=== PATIENT | female | born 2000 | race Two or more races ===

== ENCOUNTER 2022-06-20 22:08 | Inpatient (IN) | payer BC ==
[~2022-06-20] VITALS: Ht 157.5 cm; Wt 48.7 kg
[2022-06-20 22:29] VITALS: BP 121/85
[2022-06-20] MEDS ORDERED: acetaminophen 325mg tablet PO PRN ×2 (22:35)
[2022-06-20] MEDS ORDERED: mag hydrox/Alum hydrox/simeth 30ml oral suspension PO PRN (22:35)
[2022-06-20] MEDS ORDERED: NO HOME MEDS (22:45)
--- NOTE | 2022-06-20 23:34 | NUR ---
ADMIT NOTE: Pt arrived at 2200 from [facility] accompanied by PCT Lamin. Pt states she called the suicide hotline and was taken to [facility] for having suicidal thoughts with plan to drive her car into a tree or shoot herself. Pt states she has been driving her car really fast going the wrong way in traffic. Pt continues to report feeling suicidal. Pt is cooperative with assessment and went to sleep.
[2022-06-21 07:28] LABS: HEMOGLOBIN A1C 5.2 % (4.5-6.2)
[2022-06-21 07:35] LABS: CHOL/HDL RATIO 2.9 (0.00-4.99); CHOLESTEROL 162 MG/DL (0-200); HDL CHOLESTEROL 56 MG/DL (35-60); LDL CHOLESTEROL 95 MG/DL (50-100); TRIGLYCERIDES 74 MG/DL (20-135)
[2022-06-21 08:00] VITALS: BP 97/59
[2022-06-21] MEDS ORDERED: hydrOXYzine 25 MG tablet PO PRN (14:15)
--- NOTE | 2022-06-21 14:55 | NUR ---
Problem :Pt transferred from [facility] on a 5150 for DTS. Pt states she called the suicide hotline and was taken to [facility] for having suicidal thoughts with plan to drive her car into a tree or shoot herself. Pt states she has been driving her car really fast going the wrong way in traffic. Interventions : 1:1 assessment, establishment of rapport, therapeutic communication, active listening, ensured contract for safety, behavior monitoring and intervention as needed, encouraged pt to come out of room for meals, encouraged nutrition and hydration, provided positive reinforcement, Q15 minute safety checks. Response : Pt refused breakfast. Pt rated her depression at "maybe a 4 or a 5." Pt denied SI/HI/AH/VH. Pt isolated to self and room. Encouraged pt to come to lunch but she would not leave the room. Provided meal tray in her room, pt ate maybe 25%. After lunch, pt observed sitting straight up in bed looking into the hallway with a deer in the headlights expression. Asked pt if she was doing okay. Pt replied, "I'm feeling a bit anxious." Texted Dr Cody to request a PRN order for anxiety. An order was obtained for Atarax 25 mg TID PRN, however, after meeting with a social worker assistant, pt appeared calmer and denied the need for medication or further intervention. Plan : Pt in need of crisis interruption with medication initiation and monitoring in a safe and therapeutic environment until stable to prevent harm to self.
[2022-06-21] MEDS ORDERED: Melatonin 3mg tablet PO PRN (17:30)
[2022-06-21] MEDS ORDERED: ESCITALOPRAM OXALATE 5 MG TABLET PO ONE (17:33)
--- NOTE | 2022-06-21 17:53 | NUR ---
Pt has new orders for Lexapro 5 mg now, Lexapro 5 mg daily, and Melatonin 3 mg HS PRN.
[2022-06-21 19:25] VITALS: BP 118/81
--- NOTE | 2022-06-21 21:16 | NUR ---
Nursing progress note Problem :Pt transferred from [facility] on a 5150 for DTS. Pt states she called the suicide hotline and was taken to [facility] for having suicidal thoughts with plan to drive her car into a tree or shoot herself. Pt states she has been driving her car really fast going the wrong way in traffic. Interventions : 1:1 assessment, establishment of rapport, therapeutic communication, active listening, ensured contract for safety, behavior monitoring and intervention as needed, encouraged pt to come out of room for meals, encouraged nutrition and hydration, provided positive reinforcement, Q15 minute safety checks. Response : Pt was in her room at change of shift, and requested to shower. Pt requested prn meds for anxiety and was given atarax w/good effect. Pt had been sitting and rocking in her bed early in the shift. Pt isolates to her room and states she doesnt feel like coming out "yet." Pt spent time sitting in bed writing in her journal. Pt states she didnt eat much today because she feels to anxious to eat and "just throws it up." Pt took melatonin before bed and reports she slept well the night before. Plan : Pt in need of crisis interruption with medication initiation and monitoring in a safe and therapeutic environment until stable to prevent harm to self. Addendum: 06/21/22 at 2123 by Julia Rutherford RN Pt denies s/i this evening stating "I feel ok right now."
[2022-06-22 07:44] VITALS: BP 103/62
[2022-06-22] MEDS: ESCITALOPRAM OXALATE 5 MG TABLET PO SCH (08:18)
[2022-06-22] MEDS ORDERED: LEVONORGESTREL 1.5MG tablet 1.5 MG TABLET PO ONE (11:20)
--- NOTE | 2022-06-22 16:49 | NUR ---
Nursing Progress Note: Problem :Pt transferred from [facility] on a 5150 for DTS. Pt states she called the suicide hotline and was taken to [facility] for having suicidal thoughts with plan to drive her car into a tree or shoot herself. Pt states she has been driving her car really fast going the wrong way in traffic. Interventions : 1:1 assessment, establishment of rapport, therapeutic communication, active listening, ensured contract for safety, behavior monitoring and intervention as needed, encouraged pt to come out of room for meals, encouraged nutrition and hydration, provided positive reinforcement, Q15 minute safety checks. Response : Pt refused breakfast. Pt reported that she didn't sleep very good. Later, pt approached the nurse's station to request a Plan B pill. Pt stated that she had spoken with her boyfriend and he encouraged her to do so. Pt reports that she had unprotected sex with her boyfriend on Monday afternoon. She was admitted at [facility] Monday night. Notified FRANCINE Franco who ordered the Plan B pill which was given at 1132 along with a snack. Asked pt if she had used the Plan B pill before, she acknowledged that she had. Asked pt why she was not on control. Pt replied that the pills made her feel sick. Asked if she had heard about the Depo implant. She replied she tried it and had a really bad reaction. Pt indicates that she does not have a regular provider. Pt educated that there are many different pills and options and that [facility]. Pt continues to endorse depression, pt denied SI/HI/AH/VH. Pt is mostly isolative to self and has a blunted affect. Plan : Pt in need of crisis interruption with medication initiation and monitoring in a safe and therapeutic environment until stable to prevent harm to self.
[2022-06-22 19:00] VITALS: BP 101/71
--- NOTE | 2022-06-23 04:48 | NUR ---
Nursing Progress Note: Problem :Pt transferred from [facility] on a 5150 for DTS. Pt states she called the suicide hotline and was taken to [facility] for having suicidal thoughts with plan to drive her car into a tree or shoot herself. Pt states she has been driving her car really fast going the wrong way in traffic. Interventions : 1:1 assessment, establishment of rapport, therapeutic communication, active listening, ensured contract for safety, behavior monitoring and intervention as needed, encouraged pt to come out of room for meals, encouraged nutrition and hydration, provided positive reinforcement, Q15 minute safety checks. Response : Patient is pleasant and cooperative; no scheduled medications this shift. She denies SI, HI, A/VH; she self isolative and appears guarded as she responds as minimal as possible. Patient observed talking on the phone prior to bed; sleeping with no apparent difficulties. Plan : Pt in need of crisis interruption with medication initiation and monitoring in a safe and therapeutic environment until stable to prevent harm to self.
[2022-06-23 07:19] VITALS: BP 101/66
[2022-06-23] MEDS: ESCITALOPRAM OXALATE 5 MG TABLET PO SCH (08:10)
[2022-06-23] MEDS: magnesium hydroxide 30ml (MOM) UD suspension PO PRN ×2 (08:53→08:57)
--- NOTE | 2022-06-23 16:39 | NUR ---
Nursing Progress Note: Problem :Pt transferred from [facility] on a 5150 for DTS. Pt states she called the suicide hotline and was taken to [facility] for having suicidal thoughts with plan to drive her car into a tree or shoot herself. Pt states she has been driving her car really fast going the wrong way in traffic. Interventions : 1:1 assessment, establishment of rapport, therapeutic communication, active listening, ensured contract for safety, behavior monitoring and intervention as needed, encouraged pt to come out of room for meals, encouraged nutrition and hydration, provided positive reinforcement, Q15 minute safety checks. Response : Pt was up for breakfast in the dining room today. Pt ate 75% of her meal. Pt c/o constipation and was given milk of magnesia at 0853. Pt took 1/2 a sip of the MOM, shook her head no, and handed the med cup back to this nurse. Offered pt prune juice, pt refused. Pt states that she would rather have a pill. Pt denied SI/HI/AH/VH. Pt later stated that she felt better and didn't need a pill for constipation. Pt's 5150 expires tonight at 2200. Pt states that Jose ESCAMILLA told her she is being discharged this evening. Her mom can come pick her up. Plan : Pt has been started on antidepressant Lexapro. Pt will be discharged home with her mom.
[2022-06-23] MEDS ORDERED: ESCI5TAB PO (17:12)
[2022-06-23] MEDS ORDERED: HYDR-3686 PO (17:12)
[2022-06-23] MEDS ORDERED: MELA3TAB39 PO (17:12)
--- NOTE | 2022-06-23 18:54 | NUR ---
PATIENT DISCHARGED. Patient was provided her belongings and discharge instructions; walked out of the hospital with PCT. Patient's mother was waiting outside to pick her up. Patient appeared stable and happy to be discharging.
== END 2022-06-23 18:54 | disposition home or self-care (01) | DRG 885 ==
LOC: ADULT MH 22:10
PROVIDERS: ADMIT Psychiatry & Neurology Psychiatry; ATTEND Psychiatry & Neurology Psychiatry
DX: F33.2 Major depressive disorder, recurrent severe without psychotic features (principal); R45.851 Suicidal ideations; F41.1 Generalized anxiety disorder; Z81.8 Family history of other mental and behavioral disorders; Z83.3 Family history of diabetes mellitus
CPT/HCPCS: 36415; 80061; 83036; 87081; Q0177

== ENCOUNTER 2024-09-26 11:36 | Emergency (ER) | payer BC, OTHER ==
[~2024-09-26] VITALS: Ht 157.5 cm; Wt 38.9 kg
[~2024-09-26 11:36] MED LIST: ESCI5TAB PO; HYDR-3686 PO; MELA3TAB39 PO; NO HOME MEDS
[2024-09-26 11:39] VITALS: BP 104/65; PULSE 89; RESP 15; TEMP 98.1; O2SAT 100
== END 2024-09-26 13:24 | disposition home or self-care (01) ==
LOC: ER 11:37
DX: T19.2XXA Foreign body in vulva and vagina, initial encounter (principal); W44.8XXA Other foreign body entering into or through a natural orifice, initial encounter; Y93.89 Activity, other specified; Y92.89 Other specified places as the place of occurrence of the external cause; Y99.8 Other external cause status
CPT/HCPCS: 99284